=== PATIENT | male | born 1990 ===

== ENCOUNTER 2020-06-24 17:15 | Emergency (ER) | payer OTHER, BC ==
[~2020-06-24] VITALS: Ht 180.3 cm; Wt 108.9 kg
[2020-06-24] MEDS ORDERED: AMOCLA875 PO (18:17)
== END 2020-06-24 18:47 | disposition home or self-care (01) ==
LOC: ER 17:15
DX: S61.452A Open bite of left hand, initial encounter (principal); W54.0XXA Bitten by dog, initial encounter; Y93.89 Activity, other specified
CPT/HCPCS: 64450; 90471; 90714; 99282-25